=== PATIENT | female | born 1990 | race Caucasian/White ===

== ENCOUNTER 2019-01-02 21:11 | Emergency (ER) | payer MEDICAID ==
--- NOTE | 2019-01-02 21:32 | ED ---
Abdominal Pain/Female - HPI Summary HPI Summary: 28 year old F presenting to [facility] complains of worsening lower abdominal pain described as dull/throbbing/aching/pressure radiating to bilateral lower back and stabbing RLQ pain both of which started about 6 weeks ago. Reports persistent acid reflux for which she has been taking Pepcid with relief. Reports nicotine black tarry stools and bloody stools. States that her stools are normally brown/chestnut colored. States she is currently on her period. Reports intermittent vomiting multiple times. States she has not been able to eat or sleep because of the pain. The patient rates the pain 7/10 in severity. Symptoms aggravated by standing, lying down for too long, sitting, eating food. Symptoms alleviated by Pepcid. States she is followed by [facility] but hasn't sought medical attention because she works every day and hasn' t had the time to make an appointment. States her symptoms have been worsening for several weeks and decided that tonight, she should be seen by someone. States she had IUD placed 1 month ago. States she takes ibuprofen 200 mg x2-4 times daily for migraine headaches since 14 years old. States she takes vitamin D, B12, iron, hydroxyzine, Prozac. PMHx: bipolar disorder. Surgical hx: cholecystectomy 2018. No PMHx ulcer, colitis, diverticulitis. No surgical hx endoscopy or colonoscopy. - History of Current Complaint Chief Complaint: EDAbdPain Stated Complaint: ABD PAIN/BLOOD IN STOOL PER PT Time Seen by Provider: 01/02/19 21:26 Hx Obtained From: Patient Onset/Duration: Lasting Weeks - 6, Still Present Timing: Constant Severity Currently: Moderate Pain Intensity: 7 Pain Scale Used: 0-10 Numeric Location: Discrete At: RLQ, Other - lower Radiates: Yes Radiates to: Back - bilateral Character: Sharp, Dull, Other: - thorbbing/aching Aggravating Factor(s): Other: - standing, lying down for too long, sitting, eating food Alleviating Factor(s): Other: - Pepcid Associated Signs and Symptoms: Positive: Other: - persistent acid reflux, nicotine black tarry stools and bloody stools, intermittent vomiting Allergies/Adverse Reactions: Allergies Allergy/AdvReac Type Severity Reaction Status Date / Time No Known Allergies Allergy Verified 01/02/19 21:16 Home Medications: Home Medications FLUoxetine CAP* [PROzac CAP*] 40 mg PO QAM 01/02/19 [History Confirmed 01/02/19] Lurasidone(*) [Latuda] 80 mg PO DAILY 01/02/19 [History Confirmed 01/02/19] hydrOXYzine HCL TAB* [Atarax TAB 50 MG *] 50 - 100 mg PO BEDTIME PRN 01/02/19 [ History Confirmed 01/02/19] PMH/Surg Hx/FS Hx/Imm Hx GI History: Reports: Other GI Disorders - NEG: Colitis, diverticulitis Denies: Hx Diverticulosis, Hx Ulcer Neurological History: Reports: Hx Headaches, Hx Migraine Psychiatric History: Reports: Hx Bipolar Disorder - Surgical History Surgery Procedure, Year, and Place: cholecystectomy 2018 Infectious Disease History: No Infectious Disease History: Denies: Traveled Outside the [place] in Last 30 Days Review of Systems Negative: Fever Positive: Abdominal Pain - lower abdominal pain described as dull/throbbing/ aching/pressure radiating to bilateral lower back and stabbing RLQ pain, Vomiting, Other - acid reflux, nicotine black tarry stools, bloody stools All Other Systems Reviewed And Are Negative: Yes Physical Exam - Summary Physical Exam Summary: Appearance: Obese, generally well appearing young woman in no acute distress, lying in bed comfortably Skin: Warm, dry, no obvious rash Eyes: sclera anicteric, no conjunctival pallor ENT: mucous membranes moist, pharynx appears normal Neck: Supple, nontender Respiratory: Clear to auscultation, no signs of respiratory distress Cardiovascular: Normal S1, S2. No murmurs. Normal distal pulses in tibial and radial bilaterally. Abdomen: Soft, somewhat generalized abdominal tenderness without peritoneal signs, normal active bowel sounds present Rectal exam chaperoned by constance Swanson: blood about the peritoneum but patient is on her period, no melena on her rectum Musculoskeletal: Normal, Strength/ROM Intact Neurological: A&Ox3, awake and alert, mentation is normal, speech is fluent and appropriate Psychiatric: affect is normal, does not appear anxious or depressed Triage Information Reviewed: Yes Vital Signs On Initial Exam: Initial Vitals Temp Pulse Resp BP Pulse Ox 98.6 F 98 18 172/102 97 01/02/19 21:14 01/02/19 21:14 01/02/19 21:14 01/02/19 21:14 01/02/19 21:14 Vital Signs Reviewed: Yes Procedures - Sedation Patient Received Moderate/Deep Sedation with Procedure: No Diagnostics - Vital Signs Vital Signs Temp Pulse Resp BP Pulse Ox 01/02/19 21:14 98.6 F 98 18 172/102 97 - Laboratory Result Diagrams: 01/02/19 21:59 01/02/19 21:59 Lab Statement: Any lab studies that have been ordered have been reviewed, and results considered in the medical decision making process. - CT CT A/P CT Interpretation Completed By: Radiologist Summary of CT Findings: No CT findings to correlate with patient's symptomatology. ED physician has reviewed this report Re-Evaluation - Re-Evaluation First Eval Re-Evaluation Time: 01:11 Change: Improved Comment: agress to d/c Abdominal Pain Fem Course/Dx - Course Course Of Treatment: 28 year old F complains of worsening lower abdominal pain described as dull/throbbing/aching/pressure and stabbing RLQ pain, nictoine black tarry stools, bloody stools, and intermittent vomiting, all of which started about 6 weeks ago. Currently on her menstrual cycle. Abdominal surgical hx: cholecystectomy 2018. No PMHx ulcer, colitis, diverticulitis. No surgical hx endoscopy or colonoscopy. Upon exam, the patient has somewhat generalized abdominal tenderness without peritoneal signs, blood about the peritoneum but patient is on her period, no melena on her rectum. Bloodwork results with no significant abnormalities except for WBC 12.0, absolute monos 1.1, creatinine 0.97. Urinalysis results with no significant abnormalities except for _. Stool sample results positive for blood. In the ED course, the patient was given normal saline fluids [address] Abd/Pel shows, per radiologist: No CT findings to correlate with patient's symptomatology. Patient will be discharged home with prescription for Protonix. She was advised to stop taking ibuprofen. She was instructed to follow up from her primary care provider and GI. Patient was instructed to return to Emergency Department for new or worsening symptoms. Patient understands and is agreeable to this plan - Diagnoses Provider Diagnoses: Abdominal pain, Peptic ulcer disease Discharge ED - Sign-Out/Discharge Documenting (check all that apply): Patient Departure - Discharge - Discharge Plan Condition: Good Disposition: HOME Prescriptions: Pantoprazole TAB * [Protonix TAB*] 40 mg PO DAILY #30 tab Patient Education Materials: Peptic Ulcer (ED) Referrals: Toro Casper MD [Medical Doctor] - Brianda Barron MD [Primary Care Provider] - Additional Instructions: Your blood work looked ok, no signs of significant blood loss. The CT scan also appeared normal. I am concerned you may have an ulcer, possibly from all the ibuprofen you take. I am prescribing protonix for this and I would recommend stopping the ibuprofen and use tylenol for the headaches. - Billing Disposition and Condition Condition: GOOD Disposition: Home - Attestation Statements Document Initiated by Tom: Yes Documenting Scribe: Pankaj Valentin Provider For Whom Tom is Documenting (Include Credential): Santosh Blanco MD Scribe Attestation: Meghan Shannon Marco DiSanto, scribed for Santosh Blanco MD on 01/03/19 at 0218. Scribe Documentation Reviewed: Yes Provider Attestation: The documentation as recorded by the Meghan phillips Marco DiSanto accurately reflects the service I personally performed and the decisions made by Santosh bullard MD Status of Scribe Document: Viewed
[2019-01-02] MEDS ORDERED: NS 0.9% 1000 ML** 1,000 ML IV ONE (21:37)
[2019-01-02 22:06] LABS: ABS Basophils 0.1 10^3/ul (0-0.2); ABS Eosinophils 0.2 10^3/ul (0-0.6); ABS Lymphocytes 3.7 10^3/ul (1.0-4.8); ABS Monocytes 1.1 10^3/ul (0-0.8); ABS Neutrophils 6.9 10^3/ul (1.5-7.7); Eosinophil % 1.6 %; Hematocrit 43 % (35-47); Hemoglobin 14.7 g/dL (12.0-16.0); Lymphocyte % 30.7 %; Mean Corpuscular HGB Conc 34 g/dL (31-36); Mean Corpuscular Hemoglobin 31 pg (27-31); Mean Corpuscular Volume 91 fL (80-97); Mean Platelet Volume 7.8 fL (7.4-10.4); Nucleated Red Blood Cells % 0.1; Platelet Count 235 10^3/uL (150-450); Red Blood Count 4.73 10^6 /uL (3.70-4.87); Red Cell Distribution Width 13 % (10-15)
[2019-01-02 22:25] LABS: ALT 19 U/L (7-52); Albumin 3.6 g/dL (3.2-5.2); Albumin/Globulin Ratio 1.2 (1-3); Alkaline Phosphatase 97 U/L (34-104); BUN/Creatinine Ratio 15.5 (8-20); Blood Urea Nitrogen 15 mg/dL (6-24); C Reactive Protein 4.48 mg/L (<8.01); CO2 Carbon Dioxide 24 mmol/L (22-32); Chloride 108 mmol/L (101-111); EGFR African American 83.4 (>60); EGFR Non-African American 68.9 (>60); Globulin 3.1 g/dL (2-4); Glucose 93 mg/dL (70-100); Sodium 137 mmol/L (135-145); Total Protein 6.7 g/dL (6.4-8.9)
[2019-01-02 22:31] LABS: HCG Pregnancy < 0.60 mIU/mL
[2019-01-02] MEDS ORDERED: Iohexol 300* (CONTRAST) 10 ML SDV IV ONE (23:23)
[2019-01-02 23:24] LABS: AST 17 U/L (13-39); Anion Gap 5 mmol/L (2-11); Potassium 4.2 mmol/L (3.5-5.0)
[2019-01-03 01:24] VITALS: BP 127/90
== END 2019-01-03 01:11 | disposition home or self-care (01) ==
LOC: ED 21:11
DX: R10.9 Unspecified abdominal pain (principal); K27.9 Peptic ulcer, site unspecified, unspecified as acute or chronic, without hemorrhage or perforation; F31.9 Bipolar disorder, unspecified; Z79.899 Other long term (current) drug therapy; Z90.49 Acquired absence of other specified parts of digestive tract
CPT/HCPCS: 36415; 74177; 80053; 82270; 83605; 83690; 84702; 85025; 86140; 96360; 99282; Q9967